=== PATIENT | female | born 1945 | race Caucasian/White ===

== ENCOUNTER → 2016-08-16 | Outpatient (CLI) | payer MEDICARE, BC ==
--- NOTE | 2016-08-17 10:28 | MRI ---
EXAM DESCRIPTION: Cervical Spine CLINICAL HISTORY: 71 years Female, RADICULOPATHY COMPARISON: None. TECHNIQUE: Multiplanar, multisequence imaging of the cervical spine was performed without contrast. FINDINGS: There is reversal of the normal cervical lordosis. Disc desiccation noted at all levels with intervertebral disc height loss at C5-6 and C6-7. The craniocervical and atlantoaxial junctions are unremarkable. C2-C3: No spinal canal or neuroforaminal narrowing. C3-C4: Focal posterior disc protrusion. This contacts the midline diameter of the cord. The AP diameter of the spinal canal is narrowed to 8 mm. There is mild left neural foraminal narrowing from facet and uncovertebral joint hypertrophy. C4-5: Broad-based posterior disc protrusion with minimal cord flattening. The midline diameter of the spinal canal is adequate at 1 cm. Bilateral neuroforamen are unremarkable. C5-6: Broad-based posterior disc osteophyte complex with cord flattening. The midline diameter of spinal canal is moderately narrowed to 7 mm. There is moderate left and mild right neuroforaminal narrowing. C6-C7: Broad-based asymmetric to the right disc osteophyte complex with anterior right cord contact. The midline diameter of spinal canal is narrowed to 7.5 mm. There is mild bilateral neuroforaminal narrowing, right greater than left. C7-T1: Unremarkable. IMPRESSION: Today's exam demonstrates multilevel degenerative change with spinal canal narrowing at C5-6 and C6-7. There is cord contact noted at from C3-4 through C6-7 with no evidence of myelomalacia. Multilevel neural foraminal narrowing noted. Electronically signed by: Gómez Almazan MD 08/17/2016 10:27 AM NUTRITION PARTNER
--- NOTE | 2016-08-17 10:33 | MRI ---
EXAM DESCRIPTION: Lumbar Spine w/o Contrast CLINICAL HISTORY: 71 years Female, RADICULOPATHY COMPARISON: None. TECHNIQUE: Multiplanar, multisequence imaging of the lumbar spine was performed. No contrast was administered. FINDINGS: Vertebral body height and marrow signal are unremarkable. There is posterior fusion of L4-5 with an interbody spacer device. This stabilizes subtle grade 1 anterior listhesis. The conus terminates at L1. It is unremarkable. L1-L2: Unremarkable. L2-L3: Facet degeneration and ligamentum flavum thickening. There is no spinal canal or neural foraminal narrowing. Hinckley' s disease noted. L3-4: Facet degeneration, ligamentum flavum thickening noted. There is no spinal canal or neuroforaminal narrowing. Hinckley' s disease noted. L4-5: Fusion noted. The AP diameter of the spinal canal is widely patent measuring 11 mm. Bilateral neuroforamen are likely adequate. L5-S1: Bilateral facet degeneration. There is narrowing of the left lateral recess and contact of the descending left S1 nerve root. The midline diameter of the spinal canal is unremarkable measuring 11 mm. Bilateral neural foramen are mildly narrowed, but no exiting nerve root contact. IMPRESSION: There is no evidence of restenosis or neural foraminal narrowing within the surgical bed of L4-5. No spinal canal narrowing at any level. There is only mild neural foraminal narrowing at L5-S1 with no exiting nerve for contact. The facet degeneration at L5-S1 results in narrowing the left lateral recess and contact of the descending left S1 nerve root. This can result in a left S1 radiculopathy, if the patient is symptomatic. 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 Electronically signed by: Gómez Almazan MD 08/17/2016 10:32 AM IT QUALITY ASSURANCE ANALYST
--- NOTE | 2016-08-17 10:39 | MRI ---
EXAM DESCRIPTION: Thoracic Spine w/o Contrast CLINICAL HISTORY: 71 years Female, RADICULOPATHY COMPARISON: None. TECHNIQUE: Multiplanar, multisequence imaging of the thoracic spine was performed without contrast. FINDINGS: Vertebral body height, alignment and marrow signal are unremarkable. There is multilevel disc desiccation, but no intervertebral disc height loss. Today's exam demonstrates no abnormal cord signal. Small broad-based posterior disc protrusions at T3-T4, T4-T5 and T10-T11. No cord contact. No spinal canal narrowing at any level. There is mild right neural foraminal narrowing at T12-L1. There is mild left neural foraminal narrowing noted at T11-T12 and T12-L1, but no exiting nerve root contact. IMPRESSION: There is subtle degenerative disc and facet disease. There is no evidence of spinal canal narrowing or cord contact at any level. Minimal facet degeneration within the lower thoracic spine which results in bilateral neural foraminal narrowing at T12-L1 and left neural foraminal narrowing at T11-T12. No definitive exiting nerve root contact. Electronically signed by: Gómez Almazan MD 08/17/2016 10:38 AM DAIRY EQUIPMENT INSTALLER
== END | disposition home or self-care (01) ==
LOC: MRI 09:57
PROVIDERS: ATTEND Orthopaedic Surgery Orthopaedic Surgery of the Spine
DX: M96.1 Postlaminectomy syndrome, not elsewhere classified (principal); M54.16 Radiculopathy, lumbar region

== ENCOUNTER → 2016-10-24 | Outpatient (CLI) | payer MEDICARE, BC | END | disposition home or self-care (01) | LOC: GMAM 10:33 | PROVIDERS: ATTEND Family Medicine | DX: E03.8 Other specified hypothyroidism (principal) ==

== ENCOUNTER → 2017-02-10 | Outpatient (CLI) | payer MEDICARE, BC | LOC: GMAM 08:22 | PROVIDERS: ATTEND Family Medicine | DX: R35.0 Frequency of micturition (principal) ==

== ENCOUNTER → 2017-02-15 | Outpatient (CLI) | payer MEDICARE, BC | END | disposition home or self-care (01) | LOC: GMAM 16:33 | PROVIDERS: ATTEND Family Medicine | DX: E03.8 Other specified hypothyroidism (principal) ==

== ENCOUNTER → 2017-03-28 | Outpatient (CLI) | payer MEDICARE, BC | END | disposition home or self-care (01) | LOC: GMAM 10:59 | PROVIDERS: ATTEND Family Medicine | DX: R10.2 Pelvic and perineal pain (principal) ==

== ENCOUNTER → 2017-03-31 | Outpatient (CLI) | payer MEDICARE, BC ==
--- NOTE | 2017-04-02 19:05 | US ---
EXAM DESCRIPTION: Soft Tissue, abdominal wall: Ultrasound CLINICAL HISTORY: R/O LEFT SIDE HERNIA, SUPRAPUBIC ABD PN . Pain to the left of the pubic bone. Bladder infection one week ago. COMPARISON: None Available. TECHNIQUE: Transcutaneous scanning: Two-dimensional and Doppler modes. FINDINGS: Typical appearance of heterogeneous fatty and muscular tissues in the region of the left inguinal canal as well as iliofemoral vessels. 4 cm nonreactive lymph node. No peristalsing bowel without/with Valsalva maneuver, in the left inguinal region. No discrete solid masses besides lymph nodes. No cysts. No parenchymal fluid collection. IMPRESSION: 1. Left renal Hernia was not demonstrated. Left inguinal lymph nodes were visualized. Electronically signed by: Kehinde Guevara MD 04/02/2017 7:03 PM CDT
== END | disposition home or self-care (01) ==
LOC: US 09:33
PROVIDERS: ATTEND Family Medicine
DX: R10.32 Left lower quadrant pain (principal); R59.9 Enlarged lymph nodes, unspecified; R10.2 Pelvic and perineal pain

== ENCOUNTER 2017-04-06 13:25 | Emergency (ER) | payer MEDICARE, BC ==
[2017-04-06 13:40] VITALS: TEMP 97.1
[2017-04-06] MEDS ORDERED: KETOROLAC TROMETHAMINE INJ 30 MG/ML VIAL IM ONE (13:55)
[2017-04-06] MEDS ORDERED: diazePAM 2 MG TAB PO ONE (13:56)
--- NOTE | 2017-04-06 14:32 | RAD ---
EXAM DESCRIPTION: Lumbar Spine 3 Views CLINICAL HISTORY: 71 years Female, fall with pain COMPARISON: None. FINDINGS: 3 views of the lumbar spine show osseous structures to be osteopenic. No compression fracture deformity is seen. Pedicle screw and vertical bridger fixation with interbody implant is solid interbody fusion at L4-5 is seen without complicating features. Alignment is unremarkable. Facet hypertrophic and degenerative changes are seen at L5-S1. Moderate vascular calcifications are seen without aneurysmal dilatation of the aorta. IMPRESSION: Posterior hardware fixation and interbody fusion at L4-5 is seen without complicating features. Facet arthropathy at L5-S1 is noted. Electronically signed by: Kyle Groves MD 04/06/2017 2:31 PM CDT
--- NOTE | 2017-04-06 14:35 | RAD ---
EXAM DESCRIPTION: Thoracic Spine Lateral Only CLINICAL HISTORY: fall with pain COMPARISON: MRI August 16, 2016 IMPRESSION: Single lateral view of the thoracic spine shows mild anterior wedging of the superior plate of a midthoracic vertebral body probably T7. This has a somewhat similar appearance to the prior MRI exam. Mild anterior wedging of the superior plate of T5 is also suggested and is seen on previous MRI. Multilevel mild disc space narrowing and marginal endplate osteophytes consistent with disc degenerative changes. Electronically signed by: Kyle Groves MD 04/06/2017 2:34 PM CDT
--- NOTE | 2017-04-06 15:09 | ED.PDOC ---
History of Present Illness - General Chief Complaint: Trauma Stated Complaint: Fell backwards, back/R rib discomfort Time Seen by Provider: 04/06/17 13:30 Source: patient Exam Limitations: no limitations - History of Present Illness Initial Comments: The patient is a 71-year-old female presenting to emergency room secondary to back pain. The patient does have a history of chronic back pain and has had surgeries in the past. [place] and is having some increased pain in her lumbar and thoracic spine. There are no obvious new step-offs there are no abrasions or bruises noted. No new neurological deficits. She is just having some increased pain.no other obvious injuries. Timing/Duration: 1 hour Severity: moderate Improving Factors: immobilization Worsening Factors: movement Associated Symptoms: denies symptoms Allergies/Adverse Reactions: Allergies Iodine Allergy (Severe, Verified 09/25/14 18:14) Other skin reaction - 3rd degree burn Povidone Iodine [From Betadine] Allergy (Severe, Verified 09/25/14 18:14) Other skin reaction - 3rd degree burn Shellfish Allergy Allergy (Severe, Verified 09/25/14 18:14) Anaphylaxis Tramadol Allergy (Severe, Verified 09/25/14 18:14) Shortness of Breath Codeine Allergy (Verified 04/06/17 13:40) Vomitting Hydrocodone Allergy (Verified 04/06/17 13:40) Vomitting Latex Allergy (Verified 04/06/17 13:40) Rash Home Medications: Ambulatory Orders Allopurinol [Zyloprim] 100 mg PO BEDTIME 03/21/16 Cholecalciferol [Vitamin D3] 400 unit PO BID 03/21/16 Furosemide 20 mg PO DAILY 03/21/16 Levothyroxine Sodium [Synthroid] 112 mcg PO DAILY 03/21/16 Losartan Potassium 50 mg PO DAILY 03/21/16 Metformin HCl 500 mg PO BID 03/21/16 Montelukast Sodium 10 mg PO BEDTIME 03/21/16 Potassium Gluconate 595 mg PO BEDTIME 03/21/16 Pravastatin Sodium 80 mg PO BEDTIME 03/21/16 Gabapentin [Neurontin] 600 mg PO TID PRN 04/06/17 Review of Systems - Review of Systems Constitutional: States: no symptoms reported EENTM: States: no symptoms reported Respiratory: States: no symptoms reported Cardiology: States: no symptoms reported Gastrointestinal/Abdominal: States: no symptoms reported Genitourinary: States: no symptoms reported Musculoskeletal: States: back pain Skin: States: no symptoms reported Neurological: States: no symptoms reported Endocrine: States: no symptoms reported All other Systems: No Change from Baseline Past Medical History (General) - Patient Medical History Hx Stroke: Yes - per Dr. Pierre, last episode 2013 Hx Asthma: No Hx Cardiac Disorders: No Hx Congestive Heart Failure: Yes Hx Hypertension: Yes Hx Thyroid Disease: Yes Hx Diabetes: Yes Hx MRSA: No Surgical History: appendectomy, cholecystectomy, tonsillectomy, Hysterectomy, other - Vaccination History Hx Tetanus, Diphtheria Vaccination: Yes Hx Influenza Vaccination: Yes - 2017 Hx Pneumococcal Vaccination: Yes - Social History Hx Tobacco Use: No Family Medical History - Family History Father Family History: No Known Living Status: Cause of : Train accident Physical Exam - Physical Exam General Appearance: Alert, No apparent distress Eye Exam: bilateral normal Ears, Nose, Throat: hearing grossly normal, normal ENT inspection, normal pharynx Neck: supple, normal inspection Respiratory: no respiratory distress, no accessory muscle use Cardiovascular/Chest: normal peripheral pulses, no edema, other - regular rate Gastrointestinal/Abdominal: non tender, soft Rectal Exam: deferred Back Exam: other - the patient has multiple sore areas surrounding her lumbar and thoracic spine but noobvious new visible or palpable trauma. Extremity: non-tender, no pedal edema, no calf tenderness, normal capillary refill Neurologic: optimization consultant II-XII nml as tested, alert, normal mood/affect, oriented x 3 Skin Exam: normal color Comments: Vital Signs - 24 hr 04/06/17 04/06/17 13:38 14:30 Temperature 97.1 F L Pulse Rate [ 85 73 Left Radial] Respiratory 20 20 Rate Blood Pressure 143/73 115/48 [Left Arm] O2 Sat by Pulse 95 95 Oximetry Progress - Progress Progress: 04/06/17 15:10 the patient is a 71-year-old female presenting with worsening of her back pain after having fallen off of a bench today. X-rays of the lumbar and thoracic spine show no evidence of any new trauma. The patient appears to be neurologically at her baseline. The patient can use topical heat in the form of icy hot or Biofreeze along with a heat pad to help reduce muscle spasm. She should expect to be sore for a period of 2-3 weeks. She needs to keep follow- up with her pain management doctor. If the current pain is significant and persisting for more than 10 days to 2 weeks then a repeat x-ray may be warranted. Departure - Departure Clinical Impression: Low back pain Qualifiers: Chronicity: acute Back pain laterality: bilateral Sciatica presence: without sciatica Qualified Code(s): M54.5 - Low back pain Disposition: Discharge to Home or Self Care Condition: Fair Departure Forms: ED Discharge - Pt. Copy, Patient Portal Self Enrollment Diet: diabetic diet Activity: increase activity as tolerated Home Medications: Ambulatory Orders Allopurinol [Zyloprim] 100 mg PO BEDTIME 03/21/16 Cholecalciferol [Vitamin D3] 400 unit PO BID 03/21/16 Furosemide 20 mg PO DAILY 03/21/16 Levothyroxine Sodium [Synthroid] 112 mcg PO DAILY 03/21/16 Losartan Potassium 50 mg PO DAILY 03/21/16 Metformin HCl 500 mg PO BID 03/21/16 Montelukast Sodium 10 mg PO BEDTIME 03/21/16 Potassium Gluconate 595 mg PO BEDTIME 03/21/16 Pravastatin Sodium 80 mg PO BEDTIME 03/21/16 Gabapentin [Neurontin] 600 mg PO TID PRN 04/06/17 Additional Instructions: the patient is a 71-year-old female presenting with worsening of her back pain after having fallen off of a bench today. X-rays of the lumbar and thoracic spine show no evidence of any new trauma. The patient appears to be neurologically at her baseline. The patient can use topical heat in the form of icy hot or Biofreeze along with a heat pad to help reduce muscle spasm. She should expect to be sore for a period of 2-3 weeks. She needs to keep follow- up with her pain management doctor. If the current pain is significant and persisting for more than 10 days to 2 weeks then a repeat x-ray may be warranted.
[2017-04-06 15:36] VITALS: BP 112/64; O2SAT 94
== END 2017-04-06 15:25 | disposition home or self-care (01) ==
LOC: ER 13:25
DX: M54.5 Low back pain (principal); I11.0 Hypertensive heart disease with heart failure; I10 Essential (primary) hypertension; E07.9 Disorder of thyroid, unspecified; E11.9 Type 2 diabetes mellitus without complications; Z86.73 Personal history of transient ischemic attack (TIA), and cerebral infarction without residual deficits; Z79.899 Other long term (current) drug therapy; Z88.8 Allergy status to other drugs, medicaments and biological substances
CPT/HCPCS: 72020; 72100; J1885

== ENCOUNTER → 2017-04-07 | Outpatient (CLI) | payer MEDICARE, BC ==
--- NOTE | 2017-04-08 13:09 | CT ---
EXAM DESCRIPTION: COMPUTED TOMOGRAPHY PELVIS WITHOUT IV CONTRAST CLINICAL HISTORY: 71 years Female, LYMPHADENOPATHY R59.9 COMPARISON: None. TECHNIQUE: Axial imaging. No IV contrast. Sagittal and coronal reconstruction FINDINGS: Status post hysterectomy. Diverticulosis noted descending and sigmoid colon. No evidence of diverticulitis. No masses or adenopathy. No free intraperitoneal fluid is seen. Vascular calcifications noted. Lumbar spine operative change with L4-5 pedicle screws and interbody graft. Minimal anterolisthesis L4 on L5. IMPRESSION: Post hysterectomy Diverticulosis. No evidence of diverticulitis Vascular calcifications Lumbar spine operative change No masses, adenopathy, free fluid, or inflammatory process Electronically signed by: Rashi Tan 04/08/2017 1:08 PM CDT
== END | disposition home or self-care (01) ==
LOC: CT 13:02
PROVIDERS: ATTEND Family Medicine
DX: R59.9 Enlarged lymph nodes, unspecified (principal)

== ENCOUNTER → 2017-05-12 | Outpatient (CLI) | payer MEDICARE, BC | END | disposition home or self-care (01) | LOC: GMAM 10:17 | PROVIDERS: ATTEND Family Medicine | DX: E03.8 Other specified hypothyroidism (principal); E11.9 Type 2 diabetes mellitus without complications; E78.2 Mixed hyperlipidemia ==

== ENCOUNTER → 2017-08-02 | Outpatient (CLI) | payer MEDICARE, BC | LOC: GMAM 12:56 | PROVIDERS: ATTEND Family Medicine | DX: R30.0 Dysuria (principal) ==

== ENCOUNTER 2017-10-30 05:42 | Day surgery (SDC) | payer MEDICARE, BC ==
[2017-10-30] MEDS ORDERED: TROP 1%/CYCLOPEN 1%/PHENYL 2% DROPS ONE (06:14)
[2017-10-30] MEDS: TOBRAMYCIN SULF 0.3 % OPHT SOL 1 DROP LEFT_EYE ONE ×2 (12:30→13:10)
[2017-10-30] MEDS: PROPARACAINE 0.5% OPHTH SOL 15 ML BTTL LEFT_EYE ONE ×2 (12:30→12:47)
[2017-10-30] MEDS ORDERED: MIDAZOLAM INJ 2 MG/2 ML VIAL ONE ×2 (12:41→12:45)
[2017-10-30] MEDS ORDERED: LIDOCAINE 1% PF 2 ML AMP INJ ONE ×2 (12:56→13:03)
[2017-10-30] MEDS ORDERED: DEXAMETHASONE 0.1% OPHTH SOL 1 DROP LEFT_EYE ONE ×3 (12:56→13:10)
[2017-10-30] MEDS ORDERED: BRIMONIDINE 0.2% OPHTH DROPS LEFT_EYE ONE ×3 (12:57→13:10)
[2017-10-30] MEDS ORDERED: TOBRAMYCIN SULF 0.3 % OPHT SOL 1 DROP LEFT_EYE ONE ×2 (12:57→13:04)
[2017-10-30 15:35] VITALS: BP 133/72; TEMP 96.9; O2SAT 96
== END 2017-10-30 13:55 | disposition home or self-care (01) ==
LOC: AMB 05:42
PROVIDERS: ATTEND Ophthalmology
DX: H25.12 Age-related nuclear cataract, left eye (principal); I10 Essential (primary) hypertension; E11.36 Type 2 diabetes mellitus with diabetic cataract; E66.9 Obesity, unspecified; Z88.5 Allergy status to narcotic agent; Z88.8 Allergy status to other drugs, medicaments and biological substances; Z87.891 Personal history of nicotine dependence; Z79.84 Long term (current) use of oral hypoglycemic drugs; Z79.899 Other long term (current) drug therapy
CPT/HCPCS: 00142; 66984; J2250

== ENCOUNTER 2017-11-13 05:15 | Day surgery (SDC) | payer MEDICARE, BC ==
[2017-11-13] MEDS ORDERED: PROPARACAINE 0.5% OPHTH SOL 15 ML BTTL ONE (05:42)
[2017-11-13] MEDS ORDERED: TROP 1%/CYCLOPEN 1%/PHENYL 2% DROPS ONE (05:43)
[2017-11-13] MEDS ORDERED: MIDAZOLAM INJ 2 MG/2 ML VIAL ONE ×2 (07:01)
[2017-11-13] MEDS ORDERED: PROPARACAINE 0.5% OPHTH SOL 15 ML BTTL RIGHT_EYE ONE (07:18)
[2017-11-13] MEDS ORDERED: LIDOCAINE 1% PF 2 ML AMP INJ ONE (07:27)
[2017-11-13] MEDS ORDERED: DEXAMETHASONE 0.1% OPHTH SOL 1 DROP RIGHT_EYE ONE ×2 (07:27→07:30)
[2017-11-13] MEDS ORDERED: BRIMONIDINE 0.2% OPHTH DROPS RIGHT_EYE ONE ×2 (07:28→07:30)
[2017-11-13] MEDS ORDERED: TOBRAMYCIN SULF 0.3 % OPHT SOL 1 DROP RIGHT_EYE ONE ×2 (07:28→07:30)
== END 2017-11-13 08:05 | disposition home or self-care (01) ==
LOC: AMB 05:15
PROVIDERS: ATTEND Ophthalmology
DX: H25.11 Age-related nuclear cataract, right eye (principal); I10 Essential (primary) hypertension; E11.36 Type 2 diabetes mellitus with diabetic cataract; E66.9 Obesity, unspecified; J45.909 Unspecified asthma, uncomplicated; Z88.5 Allergy status to narcotic agent; Z88.8 Allergy status to other drugs, medicaments and biological substances; Z87.891 Personal history of nicotine dependence; Z79.84 Long term (current) use of oral hypoglycemic drugs; Z79.899 Other long term (current) drug therapy
CPT/HCPCS: 00142; 66984; J2250

== ENCOUNTER → 2018-03-05 | Outpatient (CLI) | payer MEDICARE, BC ==
--- NOTE | 2018-03-05 09:38 | RAD ---
EXAM DESCRIPTION: Pelvis CLINICAL HISTORY: 72 years Female, RT HIP PAIN COMPARISON: February 22, 2016 FINDINGS: Single view of the pelvis demonstrates the bony pelvis intact with intact SI joints and symphysis pubis. The superior and inferior pubic rami are intact. Hypertrophic changes involving each hip and greater trochanteric region is present. No fracture or deformity is seen. Significant asymmetry or a worse appearance to the symptomatic right hip is not apparent compared to the left. IMPRESSION: Degenerative hip arthropathy and hypertrophic changes overlying the greater trochanter bilaterally. Electronically signed by: Sagar Francis MD 03/05/2018 9:37 AM CDT
== END ==
LOC: RAD 08:20
PROVIDERS: ATTEND Orthopaedic Surgery
DX: M25.551 Pain in right hip (principal); M12.851 Other specific arthropathies, not elsewhere classified, right hip

== ENCOUNTER → 2018-04-05 | Outpatient (CLI) | payer MEDICARE, BC ==
--- NOTE | 2018-04-06 13:45 | MAM ---
EXAM DESCRIPTION: 3D Diagnostic, Bilateral: Digital Mammography CLINICAL HISTORY: 72 [id number] . Soreness of right breast. No personal history or family history of breast cancer. Childbirth. Postmenopausal 45 years. HRT 5 or more years ago. Prior right breast cyst aspiration. Lifetime risk of developing breast cancer (Tyrer-Cuzick model) percentage is 3.5 COMPARISON: 2-D digital screening bilateral study 04/21/2015.. No prior reports available.. TECHNIQUE: Bilateral CC LM MLO projection full-field images, digital mammographic tomosynthesis technique. CAD not utilized. FINDINGS: The breast parenchymal density pattern is: Scattered areas of fibroglandular density. No skin thickening or nipple retraction axillary lymph nodes bilaterally. Bilateral vascular calcifications. Bilateral solitary microcalcifications. Stable intramammary density upper posterior left breast most likely a lymph node. No new focal, stellate mass or density, focal asymmetry , and no suspicious microcalcifications bilaterally. Stable mammograms compared to prior study, taking into account differences in mammographic technique IMPRESSION: Benign exam. BIRAD CATEGORY: 2 BENIGN FINDINGS. RECOMMENDATIONS: FOLLOW UP: Routine digital bilateral screening, one year interval from March 2018. Written communication explaining the IMPRESSION and follow-up, will be mailed to the patient and referring health care provider. According to the [employer], yearly mammograms are recommended starting at age 40 and continuing as long as a woman is in good health. Any breast change noted on a breast self-exam should be reported promptly to the patient's healthcare provider. Breast MRI is recommended for women with an approximately 20-25% or greater lifetime risk of breast cancer, including women with a strong family history of breast or ovarian cancer and women who have been treated for Hodgkin's disease. A negative mammographic report should not delay tissue diagnosis in patients with significant clinical history or physical findings. Extremely dense breast tissue limits the sensitivity of digital mammography. Electronically signed by: Kehinde Guevara MD 04/06/2018 1:43 PM CDT
== END ==
LOC: MAMMO 08:30
PROVIDERS: ATTEND Family Medicine
DX: R92.8 Other abnormal and inconclusive findings on diagnostic imaging of breast (principal)
CPT/HCPCS: 77066; G0279

== ENCOUNTER → 2018-04-11 | Outpatient (CLI) | payer MEDICARE, BC ==
--- NOTE | 2018-04-11 13:32 | MRI ---
Study: MRI of the Left Ankle. Indication: ANKLE PAIN Technique: Multiplanar, multi sequence MRI of the left ankle was obtained without intravenous contrast. Comparison: None. Findings: Insertional Achilles tendinosis with mild thickening and inflammation at this site as well as low-grade interstitial fissuring at the midline. Associated enthesophyte formation with internal marrow edema. Trace retrocalcaneal bursal fluid. Plantar calcaneal heel spurring without active inflammation of the plantar fascia. No acute fracture or malalignment. Subtle fibrocartilaginous calcaneonavicular coalition. Low-grade chondral thinning throughout the tibiotalar and subtalar joints without full-thickness chondral defect. Tiny joint effusions noted. Prior sprain and thickening anterior tibiofibular ligament. Prior partial thickness tear and attenuation anterior talofibular ligament. No acute fluid filled tear of the medial 4 lateral ankle ligaments. Anterior tendons and medial tendons intact. Tendinosis and longitudinal split tearing peroneus brevis tendon along the posterior and inferior margin lateral malleolus extending to the distal calcaneus. Peroneus longus tendon intact. Impression: Insertional Achilles tendinosis and low-grade interstitial fissuring as above. Peroneus brevis tendinosis and longitudinal split tearing. Low-grade chondrosis tibiotalar and subtalar joint without full-thickness chondral defect. Prior high-grade partial thickness tearing anterior talofibular ligament as well as a prior sprain anterior tibiofibular ligament. Subtle fibrocartilaginous calcaneonavicular coalition. Electronically signed by: Juan Portillo MD 04/11/2018 1:31 PM CDT
== END ==
LOC: MRI 10:20
PROVIDERS: ATTEND Family Medicine
DX: S93.492A Sprain of other ligament of left ankle, initial encounter (principal); M94.8X7 Other specified disorders of cartilage, ankle and foot

== ENCOUNTER → 2018-08-21 | Outpatient (CLI) | payer MEDICARE, BC | LOC: GMAM 18:08 | PROVIDERS: ATTEND Family Medicine | DX: M25.50 Pain in unspecified joint (principal) ==

== ENCOUNTER 2018-09-08 03:44 | Emergency (ER) | payer MEDICARE, BC ==
[2018-09-08 03:58] VITALS: TEMP 97.7
[2018-09-08] MEDS ORDERED: ASPIRIN TABLET 325 MG TAB PO ONE (04:22)
--- NOTE | 2018-09-08 04:26 | ED.PDOC ---
History of Present Illness - General Chief Complaint: Chest Pain/MT Stated Complaint: CP, SOB since 0 Time Seen by Provider: 09/08/18 04:07 Source: patient Exam Limitations: no limitations - History of Present Illness Initial Comments: Patient presents with pressure to her chest for 6 hours. Constant, mid-sternal with radiation to her neck and mid-back. No particular timing nor context. She says she has had chest pressure before but it has been "years" and "not like this". Worse with sitting up, better with laying down. She has had chest congestion with a cough occasionally productive of yellow sputum for two days. She is unaware of a fever. She has a distant history of asthma and says that she doesn't carry an inhaler anymore. She says this does not feel like an asthma attack. Denies any cardiac history. Has NIDDM. Non-smoker. Occasional bipedal edema. Has hyperlipidemia. No other complaints. Timing/Duration: 4-6 hours Severity/Quality: moderate, pressure Location: central, back, other - neck Chest Pain Radiation: neck Activities at Onset: none Prior Chest Pain/Cardiac Workup: no prior chest pain, no prior cardiac workup Improving Factors: other - sitting up Worsening Factors: other - laying down Nitro Today/Relief: no nitro taken today Aspirin Treatment Today: no aspirin today Associated Symptoms: back pain - see HPI for other symptoms Allergies/Adverse Reactions: Allergies Iodine Allergy (Severe, Verified 09/08/18 03:59) Other skin reaction - 3rd degree burn Povidone Iodine [From Betadine] Allergy (Severe, Verified 09/08/18 03:59) Other skin reaction - 3rd degree burn Shellfish Allergy Allergy (Severe, Verified 09/08/18 03:59) Anaphylaxis Tramadol Allergy (Severe, Verified 09/08/18 03:59) Shortness of Breath Codeine Allergy (Verified 09/08/18 03:59) Vomitting Hydrocodone Allergy (Verified 09/08/18 03:59) Vomitting Latex Allergy (Verified 04/06/17 13:40) Rash All Narcotics Allergy (Uncoded 09/08/18 03:59) Home Medications: Ambulatory Orders Allopurinol [Zyloprim] 100 mg PO BEDTIME 03/21/16 Cholecalciferol [Vitamin D3] 400 unit PO BID 03/21/16 Furosemide 20 mg PO DAILY 03/21/16 Levothyroxine Sodium [Synthroid] 112 mcg PO DAILY 03/21/16 Losartan Potassium 50 mg PO DAILY 03/21/16 Metformin HCl 500 mg PO BID 03/21/16 Montelukast Sodium 10 mg PO BEDTIME 03/21/16 Potassium Gluconate 595 mg PO BEDTIME 03/21/16 Pravastatin Sodium 80 mg PO BEDTIME 03/21/16 Gabapentin [Neurontin] 600 mg PO TID PRN 04/06/17 Review of Systems - Review of Systems Constitutional: States: no symptoms reported EENTM: States: no symptoms reported Respiratory: States: see HPI Cardiology: States: see HPI Gastrointestinal/Abdominal: States: no symptoms reported Genitourinary: States: no symptoms reported Musculoskeletal: States: no symptoms reported Skin: States: no symptoms reported Neurological: States: no symptoms reported Endocrine: States: no symptoms reported Hematologic/Lymphatic: States: no symptoms reported Past Medical History (General) - Patient Medical History Hx Seizures: No Hx Stroke: No Hx Dementia: No Hx Asthma: No Hx of COPD: No Hx Cardiac Disorders: No Hx Congestive Heart Failure: No Hx Pacemaker: No Hx Hypertension: Yes Hx Thyroid Disease: Yes Hx Diabetes: Yes - Type II Hx Gastroesophageal Reflux: No Hx Renal Disease: No Hx Cancer: No Hx of HIV: No Hx Hepatitis C: No Hx MRSA: No Surgical History: noncontributory - Vaccination History Hx Tetanus, Diphtheria Vaccination: Yes Hx Influenza Vaccination: Yes - 2017 Hx Pneumococcal Vaccination: Yes - Social History Hx Tobacco Use: No Family Medical History - Family History Father Family History: No Known Living Status: Cause of : Train accident Physical Exam - Physical Exam General Appearance: Alert Eyes, Ears, Nose, Throat Exam: PERRL/EOMI, normal ENT inspection Neck: non-tender, full range of motion, supple Respiratory: no respiratory distress, no accessory muscle use, other - transmitted grunting from the trachea Cardiovascular/Chest: normal peripheral pulses, regular rate, rhythm Gastrointestinal/Abdominal: normal bowel sounds, non tender, soft Extremity: normal range of motion, non-tender, normal inspection 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, no motor/sensory deficits, alert, normal mood/affect, oriented x 3 Skin Exam: normal color Lymphatic: no adenopathy Progress - Progress Progress: 09/08/18 05:55 Laboratory Tests 09/08/18 09/08/18 09/08/18 03:47 03:47 04:12 WBC 5.6 RBC 4.02 L Hgb 12.8 Hct 38.6 MCV 96.2 MCH 31.9 H MCHC 33.2 RDW 14.5 Plt Count 199 MPV 10.2 Absolute Neuts (auto) 2.80 Absolute Lymphs (auto) 2.00 Absolute Monos (auto) 0.60 Absolute Eos (auto) 0.20 Absolute Basos (auto) 0.00 Neutrophils % 50.2 Lymphocytes % 35.2 Monocytes % 10.4 H Eosinophils % 3.6 Basophils % 0.6 PT 9.1 INR 0.91 PTT (SP) 24.3 D-Dimer, Quantitative 0.51 H* Sodium 138 Potassium 4.2 Chloride 105 Carbon Dioxide 22 Anion Gap 15.2 BUN 13 Creatinine 0.70 BUN/Creatinine Ratio 18.6 Random Glucose 124 H Serum Osmolality 277.2 Calcium 8.9 Magnesium 1.9 Total Bilirubin 0.4 Direct Bilirubin 0.1 Indirect Bilirubin 0.3 AST 43 H ALT 30 Alkaline Phosphatase 83 Creatine Kinase 67 CK-MB (CK-2) 1.6 CK-MB (CK-2) % Not Reportable Troponin I < 0.02 B-Natriuretic Peptide 11.2 Serum Total Protein 7.0 Albumin 3.8 TSH 2.86 Thyroxine (T4) 11.45 CXR unremarkable. EKG read by me showed NSR with no ST changes nor T wave inversions. No LBBB. troponin negative. Patient has had IV contrast before. CTA chest and ab/pelvis were performed out of concern for TAA or AAA. CTA chest negative. CT ab/pelvis negative. Patient was given a GI cocktail. DDX includes esophageal spasm, upper back sprain, spinal nerve paresthesia, anxiety, pleurisy. Care instructions given. E.R. warnings given. Questions were elicited and answered. Patient voiced understanding and agreement with the plan. Departure - Departure Clinical Impression: Chest pain Disposition: Discharge to Home or Self Care Condition: Good Departure Forms: ED Discharge - Pt. Copy, Patient Portal Self Enrollment Instructions: DI for Chest Pain, Acid Reflux (Gastroesophageal Reflux Disease), Adult (DC) Diet: low fat, low cholesterol, diabetic diet Activity: increase activity as tolerated Home Medications: Ambulatory Orders Allopurinol [Zyloprim] 100 mg PO BEDTIME 03/21/16 Cholecalciferol [Vitamin D3] 400 unit PO BID 03/21/16 Furosemide 20 mg PO DAILY 03/21/16 Levothyroxine Sodium [Synthroid] 112 mcg PO DAILY 03/21/16 Losartan Potassium 50 mg PO DAILY 03/21/16 Metformin HCl 500 mg PO BID 03/21/16 Montelukast Sodium 10 mg PO BEDTIME 03/21/16 Potassium Gluconate 595 mg PO BEDTIME 03/21/16 Pravastatin Sodium 80 mg PO BEDTIME 03/21/16 Gabapentin [Neurontin] 600 mg PO TID PRN 04/06/17 Additional Instructions: Take one tablet of Prilosec 30 minutes before your first meal of the day. Take another tablet 30 minutes before the last thing you eat for the day. Stop your Metformin for two days. Resume taking it on Monday. See your regular doctor if the symptoms continue. Return to the E.R. for worsening symptoms, shortness of breath, light-headedness, or temperature above 100.4.
--- NOTE | 2018-09-08 04:29 | RAD ---
EXAM: Single view chest. INDICATION: Chest pain. COMPARISON: Chest x-ray: 03/11/2016. FINDINGS: Cardiac silhouette: Unremarkable. Sylvia: Unremarkable. Lobar consolidation: None. Pleural effusion: None. Pneumothorax: None. Other: None. Bones: Changes of a right shoulder arthroplasty Other: None. IMPRESSION: 1. No acute cardiopulmonary process. Electronically signed by: Jakob Vidal MD 09/08/2018 4:26 AM CDT Workstation: [id number]
[2018-09-08 05:38] VITALS: O2SAT 95
--- NOTE | 2018-09-08 05:39 | CT ---
EXAM DESCRIPTION: CTA Chest CLINICAL HISTORY: 73 years, Female, chest pain radiating to the back COMPARISON: None. TECHNIQUE: Axial images through the chest were performed after the administration of intravenous contrast using a pulmonary embolus protocol. MIPS were performed. This exam was performed according to our departmental dose-optimization program which includes use of Automated Exposure Control, adjustment of the mA and/or kV according to patient size and/or use of iterative reconstruction technique. FINDINGS: No pulmonary embolus is identified. Normal caliber aorta without dissection. No pericardial effusion. No pleural effusion. No focal lung consolidation. No pneumothorax. Patent central airway. Soft tissues are unremarkable. No acute osseous findings. No acute abnormality within the visualized upper abdomen. Diffuse fatty infiltration of the liver. IMPRESSION: No pulmonary embolus. Electronically signed by: Glenn Pierre DO 09/08/2018 5:36 AM CDT
--- NOTE | 2018-09-08 05:39 | CT ---
CLINICAL HISTORY: chest pain, mid-back pain, concern for AAA COMPARISON: None. TECHNIQUE: CT ABDOMEN PELVIS WITH IV CONTRAST on 09/08/2018 4:31 AM CDT This exam was performed according to our departmental dose-optimization program, which includes automated exposure control, adjustment of the mA and/or kV according to patient size and/or use of iterative reconstruction technique. FINDINGS: Lower lungs are clear. Abdomen: The liver is fatty in attenuation. There is no biliary dilatation. The pancreas and spleen are normal in appearance. Adrenal glands are normal. Kidneys are mildly atrophic. Abdominal aorta is normal in course and caliber without aneurysm. There is no free air. There is no retroperitoneal adenopathy. Pelvis: There is mild diverticulosis of the distal colon. Urinary bladder is unremarkable. There is no free fluid. Hysterectomy was performed. Appendix is not clearly seen abdominal aorta is densely calcified without aneurysm. Skeleton: There are no acute osseous findings. No suspicious bony lesions. IMPRESSION: No definite acute inflammatory process. No evidence of abdominal aortic aneurysm. Electronically signed by: Jared Berrios MD 09/08/2018 5:36 AM CDT
[2018-09-08] MEDS ORDERED: LIDOCAINE HCL 2% (MOUTH-THROAT) 15 ML UD ONE (05:54)
[2018-09-08] MEDS ORDERED: ALUM & MAG HYDROX-SIMETHICONE 30 ML UD ONE (05:54)
[2018-09-08] MEDS ORDERED: ALUM & MAG HYDROX-SIMETHICONE 30 ML, LIDOCAINE VISCOUS 2% 15 ML PO ONE ×2 (05:55)
[2018-09-08 06:11] VITALS: BP 145/88
== END 2018-09-08 06:11 | disposition home or self-care (01) ==
LOC: ER 03:44
DX: R07.2 Precordial pain (principal); R05 Cough; J45.909 Unspecified asthma, uncomplicated; E11.9 Type 2 diabetes mellitus without complications; E78.5 Hyperlipidemia, unspecified; E07.9 Disorder of thyroid, unspecified; Z79.899 Other long term (current) drug therapy; Z79.84 Long term (current) use of oral hypoglycemic drugs; Z88.8 Allergy status to other drugs, medicaments and biological substances; Z88.5 Allergy status to narcotic agent; Z91.040 Latex allergy status; Z91.013 Allergy to seafood; Z91.041 Radiographic dye allergy status

== ENCOUNTER 2018-09-22 00:36 | Emergency (ER) | payer MEDICARE, BC ==
[2018-09-22 00:52] VITALS: O2SAT 97
[2018-09-22] MEDS ORDERED: LIDOCAINE HCL 2% (MOUTH-THROAT) 15 ML UD ONE (00:56)
[2018-09-22] MEDS ORDERED: ALUM & MAG HYDROX-SIMETHICONE 30 ML UD ONE (00:56)
[2018-09-22] MEDS: ALUM & MAG HYDROX-SIMETHICONE 30 ML, LIDOCAINE VISCOUS 2% 15 ML PO ONE ×2 (00:59)
[2018-09-22] MEDS: ONDANSETRON ODT 8 MG TAB SL ONE (00:59)
[2018-09-22] MEDS: SUCRALFATE 1 GM/10 ML 1 GM UD PO ONE (00:59)
[2018-09-22] MEDS: cefTRIAXone SODIUM 1 GM VIAL IM ONE (02:17)
--- NOTE | 2018-09-22 02:17 | RAD ---
CLINICAL HISTORY: ruq and flank pain COMPARISON: None. TECHNIQUE: XR ABDOMEN SUPINE AND ERECT WITH CHEST (ABD ACUTE SERIES) 09/22/2018 1:37 AM CDT FINDINGS: Bowel gas pattern is nonspecific. There are no abnormal radiopaque foreign bodies or abnormal calcifications. Right shoulder arthroplasty was performed. Lower lumbar fusion was performed. The heart is normal in size. Lungs are clear. IMPRESSION: No bowel obstruction. Electronically signed by: Jared Berrios MD 09/22/2018 2:14 AM CDT
[2018-09-22] MEDS: KETOROLAC TROMETHAMINE INJ 30 MG/ML VIAL IM ONE (02:18)
[2018-09-22] MEDS: CIPROFLOXACIN 500 MG TAB PO ONE (02:18)
--- NOTE | 2018-09-22 02:31 | ED.PDOC ---
History of Present Illness - General Chief Complaint: Abdominal Pain Stated Complaint: abd pain, worse over last 24hrs. Time Seen by Provider: 09/22/18 00:51 Source: patient Exam Limitations: no limitations - History of Present Illness Initial Comments: The patient is a 73-year-old female presenting to emergency room secondary to recurrent right flank and upper abdominal pain along with one episode of nausea and vomiting. No syncope. No blood and no bile. The patient had a similar episode a couple of weeks ago and was treated for gastritis. She did improve for a couple weeks but is now back worse. No fever. No chest pain. No syncope or near syncope. Severity: moderate Improving Factors: nothing Worsening Factors: nothing Associated Symptoms: malaise, nausea/vomiting Allergies/Adverse Reactions: Allergies Iodine Allergy (Severe, Verified 09/22/18 01:04) Other skin reaction - 3rd degree burn Povidone Iodine [From Betadine] Allergy (Severe, Verified 09/22/18 01:04) Other skin reaction - 3rd degree burn Shellfish Allergy Allergy (Severe, Verified 09/22/18 01:04) Anaphylaxis Tramadol Allergy (Severe, Verified 09/22/18 01:04) Shortness of Breath Codeine Allergy (Verified 09/22/18 01:04) Vomitting Hydrocodone Allergy (Verified 09/22/18 01:04) Vomitting Latex Allergy (Verified 09/22/18 01:04) Rash All Narcotics Allergy (Uncoded 09/08/18 03:59) Home Medications: Ambulatory Orders Allopurinol [Zyloprim] 100 mg PO BEDTIME 03/21/16 Cholecalciferol [Vitamin D3] 400 unit PO BID 03/21/16 Furosemide 20 mg PO DAILY 03/21/16 Levothyroxine Sodium [Synthroid] 112 mcg PO DAILY 03/21/16 Losartan Potassium 50 mg PO DAILY 03/21/16 Metformin HCl 500 mg PO TID 03/21/16 Montelukast Sodium 10 mg PO BEDTIME 03/21/16 Potassium Gluconate 595 mg PO BEDTIME 03/21/16 Pravastatin Sodium 80 mg PO BEDTIME 03/21/16 Gabapentin [Neurontin] 600 mg PO TID PRN 04/06/17 Cephalexin Monohydrate [Keflex] 500 mg PO Q8H #20 cap 09/22/18 Ciprofloxacin [Cipro] 500 mg PO BID #14 tab 09/22/18 Review of Systems - Review of Systems Constitutional: States: no symptoms reported EENTM: States: no symptoms reported Respiratory: States: no symptoms reported Cardiology: States: no symptoms reported Gastrointestinal/Abdominal: States: see HPI Genitourinary: States: no symptoms reported Musculoskeletal: States: back pain Skin: States: no symptoms reported Neurological: States: no symptoms reported Endocrine: States: no symptoms reported All other Systems: No Change from Baseline Past Medical History (General) - Patient Medical History Hx Seizures: No Hx Stroke: No Hx Dementia: No Hx Asthma: Yes Hx of COPD: No Hx Cardiac Disorders: No Hx Congestive Heart Failure: No Hx Pacemaker: No Hx Hypertension: Yes Hx Thyroid Disease: Yes Hx Diabetes: Yes Hx Gastroesophageal Reflux: No Hx Renal Disease: No 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 Hx of HIV: No Hx Hepatitis C: No Hx MRSA: No Surgical History: appendectomy, cholecystectomy, Hysterectomy, other - Vaccination History Hx Tetanus, Diphtheria Vaccination: Yes Hx Influenza Vaccination: Yes Hx Pneumococcal Vaccination: Yes - Social History Hx Tobacco Use: No Hx Alcohol Use: No Hx Substance Use: No Hx Substance Use Treatment: No Hx Depression: No Family Medical History - Family History Father Family History: No Known Living Status: Cause of : Train accident Physical Exam - Physical Exam General Appearance: Alert, No apparent distress Eye Exam: bilateral normal Ears, Nose, Throat: hearing grossly normal, normal ENT inspection, normal pharynx Neck: full range of motion, supple Respiratory: lungs clear, normal breath sounds, no respiratory distress, no accessory muscle use Cardiovascular/Chest: normal peripheral pulses, regular rate, rhythm, no edema Peripheral Pulses: radial,right: 2+, radial,left: 2+ Gastrointestinal/Abdominal: soft, other - right upper quadrant discomfort to palpation along with some epigastric discomfort to palpation. 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 The patient appears to have a urinary tract infection and likely pyelonephritis of the right kidney. She does additionally have some gastritis and possibly duodenitis. The patient has been started on Rocephin and ciprofloxacin here tonight for the urinary tract infection. she will be continued on ciprofloxacin and Keflex as an outpatient for one week. Additionally the patient is being treated with additional GI medications for the gastritis and duodenitis in the form of Carafate 4 times daily. ER warnings were given. She needs to follow back up with her primary care doctor towards the end of this week. Urine culture is being performed. - Results/Orders Results/Orders: acute abdominal series shows no acute pathology. Laboratory Tests 09/22/18 09/22/18 09/22/18 01:36 01:36 01:37 WBC 7.5 RBC 4.15 L Hgb 13.4 Hct 39.6 MCV 95.4 MCH 32.2 H MCHC 33.8 RDW 14.2 Plt Count 224 MPV 9.8 Absolute Neuts (auto) 4.60 Absolute Lymphs (auto) 2.10 Absolute Monos (auto) 0.70 Absolute Eos (auto) 0.10 Absolute Basos (auto) 0.10 Neutrophils % 60.8 Lymphocytes % 27.6 Monocytes % 8.8 Eosinophils % 2.0 Basophils % 0.8 Sodium 137 Potassium 4.2 Chloride 103 Carbon Dioxide 24 Anion Gap 14.2 BUN 11 Creatinine 0.67 BUN/Creatinine Ratio 16.4 Random Glucose 127 H Serum Osmolality 274.8 L Lactic Acid 1.8 Calcium 9.1 Magnesium Total Bilirubin 0.3 AST 41 ALT 33 Alkaline Phosphatase 99 Creatine Kinase 65 CK-MB (CK-2) 1.3 CK-MB (CK-2) % Not Reportable Troponin I < 0.02 B-Natriuretic Peptide 14.6 Serum Total Protein 7.2 Albumin 3.8 Globulin 3.4 Albumin/Globulin Ratio 1.1 Amylase 69 Lipase TSH Urine Color Urine Appearance Urine pH Ur Specific Harrison Urine Protein Urine Glucose (UA) Urine Ketones Urine Blood Urine Nitrite Urine Bilirubin Urine Urobilinogen Ur Leukocyte Esterase Urine RBC Urine WBC Ur Epithelial Cells Urine Bacteria 09/22/18 09/22/18 01:37 01:41 WBC RBC Hgb Hct MCV MCH MCHC RDW Plt Count MPV Absolute Neuts (auto) Absolute Lymphs (auto) Absolute Monos (auto) Absolute Eos (auto) Absolute Basos (auto) Neutrophils % Lymphocytes % Monocytes % Eosinophils % Basophils % Sodium Potassium Chloride Carbon Dioxide Anion Gap BUN Creatinine BUN/Creatinine Ratio Random Glucose Serum Osmolality Lactic Acid Calcium Magnesium 1.9 Total Bilirubin AST ALT Alkaline Phosphatase Creatine Kinase CK-MB (CK-2) CK-MB (CK-2) % Troponin I B-Natriuretic Peptide Serum Total Protein Albumin Globulin Albumin/Globulin Ratio Amylase Lipase 46 TSH 6.18 H Urine Color Yellow Urine Appearance Sl cloudy Urine pH 7.5 Ur Specific Harrison 1.015 Urine Protein Negative Urine Glucose (UA) Negative Urine Ketones Negative Urine Blood Trace-intact H Urine Nitrite Negative Urine Bilirubin Negative Urine Urobilinogen 0.2 Ur Leukocyte Esterase Large H Urine RBC 3-5 H Urine WBC Tntc H Ur Epithelial Cells 5-10 Urine Bacteria 3+ H Departure - Departure Clinical Impression: Pyelonephritis Gastritis Qualifiers: Gastritis type: unspecified gastritis Chronicity: acute Gastritis bleeding: without bleeding Qualified Code(s): K29.00 - Acute gastritis without bleeding Disposition: Discharge to Home or Self Care Condition: Fair Departure Forms: ED Discharge - Pt. Copy, Patient Portal Self Enrollment Instructions: Gastritis (DC), Urinary Tract Infection, Adult (DC) Diet: bland diet, diabetic diet Activity: increase activity as tolerated Referrals: Sagar Gamez MD [Primary Care Provider] - 1-2 Weeks Prescriptions: Cephalexin Monohydrate [Keflex] 500 mg PO Q8H #20 cap Ciprofloxacin [Cipro] 500 mg PO BID #14 tab Home Medications: Ambulatory Orders Allopurinol [Zyloprim] 100 mg PO BEDTIME 03/21/16 Cholecalciferol [Vitamin D3] 400 unit PO BID 03/21/16 Furosemide 20 mg PO DAILY 03/21/16 Levothyroxine Sodium [Synthroid] 112 mcg PO DAILY 03/21/16 Losartan Potassium 50 mg PO DAILY 03/21/16 Metformin HCl 500 mg PO TID 03/21/16 Montelukast Sodium 10 mg PO BEDTIME 03/21/16 Potassium Gluconate 595 mg PO BEDTIME 03/21/16 Pravastatin Sodium 80 mg PO BEDTIME 03/21/16 Gabapentin [Neurontin] 600 mg PO TID PRN 04/06/17 Cephalexin Monohydrate [Keflex] 500 mg PO Q8H #20 cap 09/22/18 Ciprofloxacin [Cipro] 500 mg PO BID #14 tab 09/22/18 Additional Instructions: the patient is a 73-year-old female presenting to emergency room secondary to right upper abdominal and back pain. The patient appears to have a urinary tract infection and likely pyelonephritis of the right kidney. She does additionally have some gastritis and possibly duodenitis. The patient has been started on Rocephin and ciprofloxacin here tonight for the urinary tract infection. she will be continued on ciprofloxacin and Keflex as an outpatient for one week. Additionally the patient is being treated with additional GI medications for the gastritis and duodenitis in the form of Carafate 4 times daily. ER warnings were given. She needs to follow back up with her primary care doctor towards the end of this week. Urine culture is being performed.
[2018-09-22 02:44] VITALS: BP 121/56; TEMP 97.8
== END 2018-09-22 02:44 | disposition home or self-care (01) ==
LOC: ER 00:36
DX: N12 Tubulo-interstitial nephritis, not specified as acute or chronic (principal); K29.00 Acute gastritis without bleeding; J45.909 Unspecified asthma, uncomplicated; I10 Essential (primary) hypertension; E07.9 Disorder of thyroid, unspecified; E11.9 Type 2 diabetes mellitus without complications; Z85.828 Personal history of other malignant neoplasm of skin; Z90.49 Acquired absence of other specified parts of digestive tract; Z79.84 Long term (current) use of oral hypoglycemic drugs; Z79.899 Other long term (current) drug therapy; Z88.5 Allergy status to narcotic agent; Z91.040 Latex allergy status; Z91.041 Radiographic dye allergy status; Z88.8 Allergy status to other drugs, medicaments and biological substances; Z91.013 Allergy to seafood
CPT/HCPCS: 36415; 74019; 80053; 81001; 82150; 82550; 82553; 83605; 83690; 83735; 83880; 84443; 84484; 85025; 87086; J0696; J1885

== ENCOUNTER → 2018-10-19 | Outpatient (CLI) | payer MEDICARE, BC ==
--- NOTE | 2018-10-19 13:53 | CT ---
EXAM DESCRIPTION: Abdoment/Pelvis w/o Contrast CLINICAL HISTORY: 73 years, Female, ACUTE PYELONEPHRITIS WITHOUT MEDULLARY NECROSIS COMPARISON: None. TECHNIQUE: CT of the abdomen and pelvis is performed according to our non contrast protocol. FINDINGS: The lung bases are clear. Low density liver is consistent diffuse hepatic steatosis. Gallbladder is not seen and may be surgically absent. Liver, spleen, and pancreas are otherwise unremarkable. Adrenal glands appear normal. The right kidney contains a 1.5 mm calculus in the midportion with no hydronephrosis. Tiny 1 mm calculus in the mid left kidney with no hydronephrosis. Small bowel loops appear normal in caliber with normal wall thickness. There is no lymphadenopathy, inflammation, or free fluid observed. In the pelvis, the appendix is not seen and may be surgically absent. No inflammation around the cecum or terminal ileum or sigmoid colon. Sigmoid diverticulosis is present without acute appearing inflammation. No stones in the distal ureters or bladder. Rectal wall thickness is normal for degree of distention. No free fluid or mass in the pelvis. Uterus and ovaries are not seen, evidently surgically absent. No inguinal or lower pelvic adenopathy. Degenerative narrowing of the hip joints. Orthopedic hardware in the lower L-spine. Coronal and sagittal reformatted images confirm the findings. Liver length of 20.4 cm is increased. IMPRESSION: Mildly enlarged liver with diffuse hepatic steatosis. Tiny nonobstructing renal calculi. This exam was performed according to our departmental dose-optimization program, which includes automated exposure control, adjustment of the mA and/or kV according to patient size and/or use of iterative reconstruction technique. Total DLP equals 1176.69 mGycm. Electronically signed by: Antoine Eric MD 10/19/2018 1:51 PM CDT
== END ==
LOC: CT 08:30
PROVIDERS: ATTEND Family Medicine
DX: N10 Acute pyelonephritis (principal); K76.0 Fatty (change of) liver, not elsewhere classified; N20.0 Calculus of kidney

== ENCOUNTER → 2018-12-14 | Outpatient (CLI) | payer MEDICARE, BC ==
--- NOTE | 2018-12-14 15:19 | MRI ---
MRI left knee without contrast INDICATION: Knee pain meniscal tear osteoarthrosis TECHNIQUE: Noncontrast MR imaging left knee FINDINGS: Normal patellofemoral alignment. Small joint effusion. Small Bernal's cyst. Multifocal mild patellofemoral chondrosis. Extensor tendinosis with hypertrophy/enthesophyte of the tibial tubercle. Mild prepatellar and superficial infrapatellar bursitis. Cruciate ligament are intact. Diffuse degenerative tear medial meniscus with free edge truncation and mild volume loss. Joint space narrowing medial tibiofemoral compartment with up to grade 4 chondral thinning in the medial compartment. Marginal osteophytes. Mild degenerative change lateral meniscus. There are enthesophytes upper and lower pole patella related to the patellar tendon and quadriceps attachments. Partial medial meniscal extrusion along the medial jointline. Mild degenerative change lateral meniscus with chondral thinning especially lateral tibial plateau. No disruption of the collateral ligaments. 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
== END ==
LOC: MRI 12:35
PROVIDERS: ATTEND Family Medicine
DX: M17.12 Unilateral primary osteoarthritis, left knee (principal); M23.304 Other meniscus derangements, unspecified medial meniscus, left knee; M22.42 Chondromalacia patellae, left knee; M71.22 Synovial cyst of popliteal space [Baker], left knee

== ENCOUNTER 2019-01-04 23:36 | Emergency (ER) | payer MEDICARE, BC ==
[2019-01-05] MEDS ORDERED: SODIUM CHLORIDE 0.9% 1000ML 1,000 ML IVS ONE (00:05)
[2019-01-05] MEDS ORDERED: ONDANSETRON ODT 8 MG TAB SL ONE (00:05)
--- NOTE | 2019-01-05 00:07 | ED.PDOC ---
History of Present Illness - General Chief Complaint: GI Problem Stated Complaint: n/v/d Time Seen by Provider: 01/05/19 00:04 Information Source: patient, family Exam Limitations: no limitations - History of Present Illness Initial Comments: patient comes in with her for nausea, vomiting, and diarrhea. Patient stated she started feeling ill on Monday and then had horrible bouts of nausea, vomiting, and diarrhea. She started to get a little bit better yesterday but then suffered a relapse tonight. Her started getting sick2 and half days ago. Patient states that just have not been able to get better on their own. No questionable by mouth intake or recent travel. No fever, cough, congestion. Patient has had some chills. Patient does have a past medical history of diabetes mellitus, hypothyroidism, hypertension, and a varied muscle skeletal complaints Abdominal Pain Onset Location: generalized abdomen Pain Radiation: no radiation Quality: mild, cramping Timing/Duration: days - 4 Improving Factors: nothing Worsening Factors: nothing Associated Symptoms: nausea/vomiting Review of Systems - Review of Systems Constitutional: States: chills, weakness EENTM: States: no symptoms reported. Denies: eye pain, ear pain, nose congestion, throat pain Respiratory: States: no symptoms reported. Denies: cough, short of breath Cardiology: States: no symptoms reported. 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 Hx of HIV: No Hx Hepatitis C: No Hx MRSA: No Surgical History: appendectomy, cholecystectomy, Hysterectomy - Vaccination History Hx Tetanus, Diphtheria Vaccination: Yes Hx Influenza Vaccination: Yes Hx Pneumococcal Vaccination: Yes - Social History Hx Tobacco Use: No Hx Alcohol Use: No Hx Substance Use: No Hx Substance Use Treatment: No Hx Depression: No Family Medical History - Family History Father Family History: No Known Living Status: Cause of : Train accident Physical Exam - Physical Exam General Appearance: Alert, Comfortable, No apparent distress Eyes, Ears, Nose, Throat Exam: PERRL/EOMI, normal ENT inspection, TMs normal, pharynx normal Neck: non-tender, full range of motion, supple, normal inspection Respiratory: chest non-tender, lungs clear, normal breath sounds, no respiratory distress Cardiovascular/Chest: normal peripheral pulses, regular rate, rhythm, no edema, no gallop, no JVD, no murmur Peripheral Pulses: No deficit Gastrointestinal/Abdominal: normal bowel sounds, soft, no organomegaly, no pulsatile mass, tenderness - mild tenderness to palpation diffusely with no rebound and no guarding Extremity: non-tender Neurologic: alert, oriented x 3 Progress - Results/Orders Results/Orders: 01/05/19 00:05 Sodium Chloride 0.9% 1000ML [Ns 1000 ml] 1,000 ml IVS ONCE Laboratory Results WBC 8.4 K/mm3 (4.8-10.8) 01/05/19 00:05 RBC 4.56 M/mm3 (4.20-5.40) 01/05/19 00:05 Hgb 14.4 gm/dL (12.0-16.0) 01/05/19 00:05 Hct 43.6 % (36.0-47.0) 01/05/19 00:05 MCV 95.5 fl (81.0-99.0) 01/05/19 00:05 MCH 31.6 pg (27.0-31.0) H 01/05/19 00:05 MCHC 33.1 g/dL (33.0-37.0) 01/05/19 00:05 RDW 14.9 % (11.5-14.5) H 01/05/19 00:05 Plt Count 252 K/mm3 (130-400) 01/05/19 00:05 MPV 9.3 fl (7.40-10.4) 01/05/19 00:05 Absolute Neuts (auto) 7.20 K/uL (1.8-6.8) H 01/05/19 00:05 Absolute Lymphs (auto) 0.60 K/uL (1.0-3.4) L 01/05/19 00:05 Absolute Monos (auto) 0.40 K/uL (0.2-0.8) 01/05/19 00:05 Absolute Eos (auto) 0.10 K/uL (0.0-0.4) 01/05/19 00:05 Absolute Basos (auto) 0.00 K/uL (0.0-0.1) 01/05/19 00:05 Neutrophils % 86.3 % (42.0-78.0) H 01/05/19 00:05 Lymphocytes % 6.9 % (20.0-50.0) L 01/05/19 00:05 Monocytes % 5.0 % (2.0-9.0) 01/05/19 00:05 Eosinophils % 1.4 % (1.0-5.0) 01/05/19 00:05 Basophils % 0.4 % (0.0-2.0) 01/05/19 00:05 Sodium 140 mmol/L (135-145) 01/05/19 00:05 Potassium 4.2 mmol/L (3.6-5.0) 01/05/19 00:05 Chloride 103 mmol/L (101-111) 01/05/19 00:05 Carbon Dioxide 25 mmol/L (21-31) 01/05/19 00:05 Anion Gap 16.2 (12-18) 01/05/19 00:05 BUN 14 mg/dL (7-18) 01/05/19 00:05 Creatinine 0.85 mg/dL (0.6-1.3) 01/05/19 00:05 BUN/Creatinine Ratio 16.5 (10-20) 01/05/19 00:05 Random Glucose 145 mg/dL (70-105) H 01/05/19 00:05 Serum Osmolality 282.5 mOsm/L (275-295) 01/05/19 00:05 Calcium 9.6 mg/dL (8.4-10.2) 01/05/19 00:05 Total Bilirubin 0.6 mg/dL (0.2-1.0) 01/05/19 00:05 AST 38 IU/L (10-42) 01/05/19 00:05 ALT 31 IU/L (10-60) 01/05/19 00:05 Alkaline Phosphatase 73 IU/L (42-121) 01/05/19 00:05 Serum Total Protein 7.9 gm/dL (6.4-8.2) 01/05/19 00:05 Albumin 4.2 g/dl (3.2-5.5) 01/05/19 00:05 Globulin 3.7 gm/dL (2.3-3.5) H 01/05/19 00:05 Albumin/Globulin Ratio 1.1 (1.1-1.9) 01/05/19 00:05 Departure - Departure Clinical Impression: Gastroenteritis Disposition: Discharge to Home or Self Care Condition: Fair Departure Forms: ED Discharge - Pt. Copy, Patient Portal Self Enrollment Referrals: Sagar Gamez MD [Primary Care Provider] - 1-2 Weeks Prescriptions: Ondansetron Odt [Zofran ODT] 8 mg PO Q8HRS PRN #10 tab PRN Reason: Nausea Home Medications: Ambulatory Orders Allopurinol [Zyloprim] 100 mg PO BEDTIME 03/21/16 Cholecalciferol [Vitamin D3] 400 unit PO BID 03/21/16 Furosemide 20 mg PO DAILY 03/21/16 Levothyroxine Sodium [Synthroid] 112 mcg PO DAILY 03/21/16 Losartan Potassium 50 mg PO DAILY 03/21/16 Metformin HCl [Metformin Hydrochloride] 500 mg PO TID 03/21/16 Montelukast Sodium 10 mg PO BEDTIME 03/21/16 Potassium Gluconate 595 mg PO BEDTIME 03/21/16 Pravastatin Sodium 80 mg PO BEDTIME 03/21/16 Gabapentin [Neurontin] 600 mg PO TID PRN 04/06/17 Cephalexin Monohydrate [Keflex] 500 mg PO Q8H #20 cap 09/22/18 Ciprofloxacin [Cipro] 500 mg PO BID #14 tab 09/22/18 Ondansetron Odt [Zofran ODT] 8 mg PO Q8HRS PRN #10 tab 01/05/19 Additional Instructions: return to ER for worsening of symptoms, intractable emesis or severe pain. Follow up with PCP on Monday
[2019-01-05 01:26] VITALS: BP 125/70; TEMP 98.2; O2SAT 93
== END 2019-01-05 00:21 | disposition home or self-care (01) ==
LOC: ER 23:36
DX: K52.9 Noninfective gastroenteritis and colitis, unspecified (principal); J45.909 Unspecified asthma, uncomplicated; I10 Essential (primary) hypertension; E03.9 Hypothyroidism, unspecified; E11.9 Type 2 diabetes mellitus without complications; Z85.828 Personal history of other malignant neoplasm of skin
CPT/HCPCS: 36415; 80053; 85025; J7030

== ENCOUNTER → 2019-01-10 | Outpatient (CLI) | payer MEDICARE, BC ==
--- NOTE | 2019-01-10 08:23 | RAD ---
EXAM DESCRIPTION: Pelvis CLINICAL HISTORY: 73 years Female, M25.552 COMPARISON: None. FINDINGS: Orthopedic hardware in the lower lumbar spine. Sacrum appears intact. Intact bones of the pelvic ring. Large marginal osteophytes at the acetabular margins bilaterally. Enthesopathy of the iliac wings and at the bilateral greater trochanters. No femoral fracture or hip dislocation. Mild degenerative narrowing of the hip joints and pubic symphysis. Degenerative narrowing of the SI joints. IMPRESSION: Negative for fracture. Degenerative changes as described. Electronically signed by: Antoine Eric MD 01/10/2019 8:21 AM CDT
== END ==
LOC: RAD 07:37
PROVIDERS: ATTEND Orthopaedic Surgery
DX: M16.0 Bilateral primary osteoarthritis of hip (principal)

== ENCOUNTER → 2019-01-18 | Outpatient (CLI) | payer MEDICARE, BC ==
--- NOTE | 2019-01-21 13:06 | CT ---
EXAM DESCRIPTION: CTA Neck: Computed Tomography. CLINICAL HISTORY: OCCLUSION AND STENOSIS OF BILATERAL CAROTID ARTERIES. Abnormal ultrasound carotid screening. COMPARISON: None available. TECHNIQUE: Spiral, axial 2.5 x 2.5 mm scans through the neck soft tissues after bolus infusion of IV contrast. Coronal and sagittal 2.0 mm reconstructions. 3D volume rendering images 0.6 mm . Percentage of stenosis recorded will be based upon NASCET criteria. Total Exam DLP: 461.07 mGy-cm. This exam was performed according to our departmental CT dose-optimization program which includes automated exposure control, adjustment of the mA and/or kV according to patient size and/or use of iterative reconstruction technique; to reduce radiation dose to as low as reasonably achievable (ALARA). FINDINGS: Minimal calcification of the origin of the right CCA. Less than 20% stenosis of the lateral wall of the proximal right ICA by calcification and similar narrowing of the anterior wall slightly more distally. Intracranial segment unremarkable with normal bifurcation and additional right posterior communicating artery. Minimal atherosclerotic calcification of the origin of the left CCA. Bifurcation is negative with minimal intimal wall thickening approximately 25% proximal left ICA. Calcification in the carotid siphon with approximately 25% narrowing. Normal bifurcation to form the left YVES and middle cerebral artery. No left posterior communicating artery. No significant stenosis, no aneurysm, no mass effect, no vasculitis in the anterior circulation. Bilateral vertebral arteries with standard origins from the subclavian arteries. Vertebral artery slightly larger than the left. Major vessels originating bilaterally from the vertebral arteries are unremarkable. Normal junction to form the basilar artery and normal basilar artery bifurcation. No aneurysms, no stenosis, no mass effect, and no vasculitis. Right upper extremity contrast injection with multiple venous collaterals in the right shoulder neck and breast. Small emphysematous blebs in a centrilobular distribution in the bilateral upper lobes of the lungs with Mosaic densities bilaterally. Small thyroid gland. No marked adenopathy or soft tissue mass in the neck soft tissues or subcutaneous adipose tissues. Airway appears relatively symmetric with no effacement or displacement. Air-fluid level in the left sphenoid sinus. Other paranasal sinus air cells unremarkable. Soft tissue in some of the inferior bilateral mastoid air cells. Anterolisthesis C2-3 C3-4 and C4-5. C5-C6 and C6-C7 with spondylosis canal and bilateral neural foraminal narrowing. IMPRESSION: 1. No significant stenosis in the anterior posterior circulations of the neck and head. No aneurysms, no mass effect, no midline shift. 2. Collateral flow in the right side of the neck and shoulder after right upper extremity injection. This can indicate a partial thrombus. 3. Emphysematous changes in the included upper lungs. 4. Air-fluid level in the left sphenoid air cell indicating acute sinusitis. 5. Spondylosis and anterolisthesis at several levels of the cervical spine. Electronically signed by: Kehinde Guevara MD 01/21/2019 11:24 AM CDT
== END ==
LOC: CT 10:00
PROVIDERS: ATTEND Family Medicine
DX: I65.23 Occlusion and stenosis of bilateral carotid arteries (principal); J43.9 Emphysema, unspecified; M47.892 Other spondylosis, cervical region; M43.12 Spondylolisthesis, cervical region

== ENCOUNTER → 2019-01-28 | Outpatient (CLI) | payer MEDICARE, BC ==
--- NOTE | 2019-01-28 16:28 | US ---
EXAM DESCRIPTION: Venous,Upper Extremity RT: ULTRASOUND. CLINICAL HISTORY: CERVICALGIA COMPARISON: None Available. TECHNIQUE: Two -dimensional and doppler sonographic evaluation of the deep venous system of the right upper extremity. FINDINGS: Doppler evaluation shows normal color flow and normal phasicity and augmentation of the right subclavian, jugular, axillary, basilic, cephalic, brachial, radial vein and ulnar vein. The right upper extremity deep veins showed normal occlusion with transducer pressure. Two-dimensional survey showed no echogenic thrombus within these veins. IMPRESSION: Duplex ultrasound evaluation of the right upper extremity deep venous system showing no thrombosis . Electronically signed by: Kehinde Guevara MD 01/28/2019 4:27 PM CDT
== END ==
LOC: LAB.O 10:30
PROVIDERS: ATTEND Family Medicine
DX: R93.89 Abnormal findings on diagnostic imaging of other specified body structures (principal); M54.2 Cervicalgia; R19.7 Diarrhea, unspecified

== ENCOUNTER 2019-02-05 05:32 | Day surgery (SDC) | payer MEDICARE, BC ==
--- NOTE | 2019-02-01 09:56 | HP ---
CHIEF COMPLAINT: Left knee pain. HISTORY OF PRESENT ILLNESS: Melisa is a 74-year-old female with a history of pain in the left knee that has been going on for at least 5 months. She has had pain that is prohibiting from doing her daily activities comfortably. It has been unresponsive to physical therapy, topical medications and anti- inflammatories. She does get occasional clicking both medially and now it has started laterally. She has had no gross locking. The clicking is painful and the pain can reach a maximal level of 8. It is sharp in quality. It occurs daily. She has had studies that do reveal she has a meniscus tear. Because of that and her failure of conservative measures, she has requested operative intervention. After discussing the risks, benefits and alternatives to that, she has given informed consent. PAST SURGICAL HISTORY: 1. Tonsillectomy. 2. Hysterectomy. 3. Cholecystectomy. 4. Appendectomy. 5. Oophorectomy. 6. Hemorrhoidectomy. 7. Tumor removal. MEDICATIONS: 1. Levothyroxine. 2. Montelukast. 3. Losartan. 4. Allopurinol. PAIN CONTRACT: She is under a pain contract with Dr. Gamez. ALLERGIES: CODEINE, OXYCODONE. CODE STATUS: DNR. IMMUNIZATIONS: Up to date. SOCIAL HISTORY: The patient does not smoke or use any recreational drugs. She does drink on occasion. FAMILY HISTORY: None pertinent to today's complaint. REVIEW OF SYSTEMS: Negative except as indicated in the History of Present Illness. PHYSICAL EXAMINATION: VITAL SIGNS: Blood pressure 147/64. Pulse 84. Height 5'2". Weight 208 pounds. MENTAL STATUS: The patient is awake, alert, and is able to give a good history and participate in the physical. The patient is oriented to person, place and time. SKIN: Normal tone and turgor. MUSCULOSKELETAL: She has a mild effusion today and is very tender along the medial aspect of the knee. She has tenderness laterally as well. She has intact sensation throughout. She has a warm and well perfused. There is no varus/valgus or anterior/posterior laxity. She has both crepitus and clicking in the knee along the medial aspect and into the patellofemoral joint. Extension is full and flexion is to about 105 degrees. IMAGING: X-rays show arthritic changes. MRI shows meniscal tear as well. ASSESSMENT: 1. Meniscus tear. 2. Arthritis. PLAN: The plan at this point is for knee arthroscopy. We have discussed the risks, benefits, and alternatives to that and the patient has given informed consent. #[id number] [facility]
[2019-02-05] MEDS ORDERED: ceFAZolin SODIUM 1 GM VIAL ONE ×2 (07:39→10:25)
[2019-02-05] MEDS ORDERED: SODIUM CHL 0.9% 100ML MINI-BAG 100 ML IVPB ONE (07:39)
[2019-02-05] MEDS ORDERED: TRANEXAMIC ACID 1,000 MG/10 ML VIAL IV ONE (09:44)
[2019-02-05] MEDS: LACTATED RINGERS 1,000 ML ONE ×2 (09:44→09:45)
[2019-02-05] MEDS ORDERED: PROPOFOL 200 MG/20 ML VIAL IV ONE (10:00)
[2019-02-05] MEDS ORDERED: ePHEDrine SULF 50 MG/ML IV ONE (10:00)
[2019-02-05] MEDS ORDERED: METOCLOPRAMIDE HCL INJ 10 MG/2 ML VIAL IV ONE (10:00)
[2019-02-05] MEDS ORDERED: ONDANSETRON INJ 4 MG/2 ML VIAL IV ONE (10:00)
[2019-02-05] MEDS ORDERED: DEXAMETHASONE INJ 10 MG/ML VIAL IV ONE (10:00)
[2019-02-05] MEDS ORDERED: LIDOCAINE 1% 10 ML VIAL INJ ONE (10:00)
[2019-02-05] MEDS ORDERED: KETOROLAC TROMETHAMINE INJ 30 MG/ML VIAL IV ONE (10:00)
[2019-02-05] MEDS ORDERED: raNITIdine HCL INJ 25 MG/ML VIAL IV ONE (10:00)
[2019-02-05] MEDS ORDERED: BUPIVACAINE LIPOSOME 13.3 MG/ML VIAL INJ ONE (10:26)
[2019-02-05] MEDS ORDERED: VANCOMYCIN HCL INJ 1,000 MG VIAL IVPB ONE (10:26)
[2019-02-05] MEDS ORDERED: KETAMINE HCL 50 MG/ML SYG IV ONE (10:31)
[2019-02-05] MEDS ORDERED: MIDAZOLAM INJ 2 MG/2 ML VIAL ONE (10:31)
[2019-02-05] MEDS ORDERED: fentaNYL CITRATE INJ 50 MCG/ML AMP ONE ×2 (10:31→12:40)
[2019-02-05] MEDS: BUPIVACAINE 0.5% 30 ML VIAL INJ ONE ×2 (11:10→11:58)
[2019-02-05] MEDS ORDERED: LACTATED RINGERS 1,000 ML IVS ONE (12:13)
[2019-02-05] MEDS ORDERED: fentaNYL CITRATE INJ 50 MCG/ML AMP IV ONE ×3 (12:42→13:10)
[2019-02-05 13:26] VITALS: O2SAT 100
[2019-02-05 13:27] VITALS: BP 148/78
[2019-02-05 14:56] VITALS: TEMP 97.1
--- NOTE | 2019-02-06 08:38 | OP ---
DATE OF PROCEDURE: 02/05/19 PREOPERATIVE DIAGNOSIS: 1. Meniscus tear. 2. Osteoarthritis. POSTOPERATIVE DIAGNOSIS: 1. Meniscus tear. 2. Osteoarthritis. PROCEDURE: 1. Partial medial meniscectomy. 2. Partial lateral meniscectomy. 3. Debridement. SURGEON: Donato Keller MD. [employer] SC[employer] TECHNICIAN: Kehinde Faith CST, SA-C. ANESTHESIA: General anesthesia. COMPLICATIONS: None. FINDINGS: 1. Full thickness defects of the cartilage in the medial compartment on both the tibial and femoral surfaces. 2. Flap tears in the body and anterior horn of the medial meniscus. 3. Normal ACL and normal PCL. 4. Advanced cartilage degeneration in the lateral compartment. 5. Degenerative tearing of the lateral meniscus. 6. Normal lateral gutter. 7. Normal suprapatellar pouch. 8. Arthritis of the patellofemoral compartment. 9. Normal medial gutter. INDICATION FOR PROCEDURE: Ms. Lopez has a history of knee pain and she has had some mechanical symptoms. Because of her mechanical symptoms, she did have an MRI which revealed tearing of the meniscus. Despite the presence of arthritis, she requested operative intervention and given the mechanical symptoms, I felt it was reasonable. After discussing the risks, benefits and alternatives to operative therapy, the patient has given informed consent. PROCEDURE: The patient was brought to the Operating Room and placed in supine position. General anesthesia was induced and the patient's leg was sterilely prepped and draped. Following prepping and draping, standard anteromedial and anterolateral portals were established. Diagnostic arthroscopy was carried out with the above findings. Attention was then focused on the medial compartment where debridement of both the meniscus and the chondral surfaces was carried out with a 3.5 mm full radius shaver. Following that, attention was focused on the lateral compartment and it was debrided as well. A superolateral portal was established and the patellofemoral compartment was debrided. Following that, the knee was very thoroughly irrigated and drained. Following draining of the knee, the wounds were closed with Nylon suture. Sterile dressings were placed. The patient was awoken from anesthesia and taken to Recovery. POSTOPERATIVE PLAN: The patient will be nonweightbearing and will followup with us in two days. [facility][id number] [facility]
== END 2019-02-05 14:30 | disposition home or self-care (01) ==
LOC: AMB 05:32
PROVIDERS: ATTEND Orthopaedic Surgery
DX: M23.212 Derangement of anterior horn of medial meniscus due to old tear or injury, left knee (principal); M23.201 Derangement of unspecified lateral meniscus due to old tear or injury, left knee; M17.12 Unilateral primary osteoarthritis, left knee; F32.9 Major depressive disorder, single episode, unspecified; M10.9 Gout, unspecified; I10 Essential (primary) hypertension; E78.5 Hyperlipidemia, unspecified; E03.9 Hypothyroidism, unspecified; Z90.710 Acquired absence of both cervix and uterus; Z90.49 Acquired absence of other specified parts of digestive tract; Z88.5 Allergy status to narcotic agent; Z79.84 Long term (current) use of oral hypoglycemic drugs; Z79.1 Long term (current) use of non-steroidal anti-inflammatories (NSAID); Z79.899 Other long term (current) drug therapy
CPT/HCPCS: 01400; 29880; 36416; 80307; 82948; 87070; J0690; J1100; J1885; J2250; J2405; J2765; J2780; J3010; J3370; J3490; J7050; J7120

== ENCOUNTER → 2019-03-05 | Outpatient (CLI) | payer MEDICARE, BC | LOC: GMAM 11:03 | PROVIDERS: ATTEND Family Medicine | DX: E03.8 Other specified hypothyroidism (principal); I10 Essential (primary) hypertension; E11.9 Type 2 diabetes mellitus without complications ==

== ENCOUNTER → 2019-10-24 | Outpatient (CLI) | payer MEDICARE, BC | LOC: GMAM 11:41 | PROVIDERS: ATTEND Family Medicine | DX: E53.8 Deficiency of other specified B group vitamins (principal); E03.8 Other specified hypothyroidism; E55.9 Vitamin D deficiency, unspecified ==

== ENCOUNTER → 2019-11-01 | Outpatient (CLI) | payer MEDICARE, BC ==
--- NOTE | 2019-11-01 14:50 | MRI ---
EXAM DESCRIPTION: Lumbar Spine w/o Contrast CLINICAL HISTORY: 74 years Female, RADICULOPATHY COMPARISON: MRI of the lumbar spine dated 08/17/2016. TECHNIQUE: Multiplanar multiecho imaging of the lumbar spine was performed without intravenous contrast administration. FINDINGS: Posterior spinal fixation hardware is noted traversing L4 and L5 vertebral bodies. There is persistent grade 1 anterolisthesis of L4 over L5. The vertebral body heights are well-maintained with no acute compression deformity. Multilevel intervertebral disc space narrowing is noted. The conus medullaris terminates at T12-L1 intervertebral disc space. The visualized spinal cord demonstrates no signal abnormality. L1-L2: Disc desiccation and loss of disc height. No disc herniation. Minimal bilateral neural foraminal narrowing secondary to facet arthropathy. L2-L3: Disc desiccation and loss of disc height. 4.5 mm diffuse disc bulge, ligamentum flavum hypertrophy and facet arthropathy with mild canal stenosis. The thecal sac measures 1 cm. Mild right and moderate left neural foraminal narrowing is also present. L3-L4: 2 mm diffuse disc bulge, ligamentum flavum hypertrophy and facet arthropathy with mild central canal stenosis, moderate to severe left lateral recess narrowing, mild left and [id number] left neural foraminal narrowing. The thecal sac measures 1 cm. L4-L5: No significant central canal stenosis. Changes of posterior laminectomy. Moderate bilateral neural foraminal narrowing is noted, worse on the left side. L5-S1: 4 mm diffuse disc bulge asymmetric to the left with impingement of the exiting left L5 nerve root. Bilateral facet arthropathy is noted with resultant severe left lateral recess narrowing, moderate right and moderate to severe left neural foraminal narrowing. The visualized prevertebral and paravertebral soft tissues appear unremarkable. IMPRESSION: Multilevel degenerative disc disease, ligamentum flavum hypertrophy and facet arthropathy throughout the lumbar spine with variable degrees of neural foraminal narrowing, worse at L5-S1 level, as described above. Electronically signed by: Marcelle Mcgowan MD 11/01/2019 2:48 PM CDT
== END ==
LOC: MRI 13:00
PROVIDERS: ATTEND Family Medicine
DX: M54.16 Radiculopathy, lumbar region (principal); M51.36 Other intervertebral disc degeneration, lumbar region; M24.28 Disorder of ligament, vertebrae; M46.96 Unspecified inflammatory spondylopathy, lumbar region; M48.07 Spinal stenosis, lumbosacral region

== ENCOUNTER → 2019-12-24 | Outpatient (CLI) | payer MEDICARE, BC ==
--- NOTE | 2019-12-25 16:51 | MAM ---
EXAM DESCRIPTION: 3D Screening BILATERAL : Digital Mammography. CLINICAL HISTORY: 74 years Female ANNUAL SCREENING history sheet. Lifetime risk of developing breast cancer (Tyrer-Cuzick model)(%): Not calculated COMPARISON: Bilateral diagnostic digital breast tomosynthesis March 2018 and 2-D digital screening bilateral mammography March 2015.. TECHNIQUE: Bilateral CC and MLO projection full-field images, digital tomosynthesis mammographic technique. Bilateral digital 2-D full-field MLO images. CAD available for 2-D images. FINDINGS: The breast parenchymal density pattern is: Scattered areas of fibroglandular density. No skin thickening or nipple retraction. Axillary lymph nodes. Vascular calcifications. Solitary microcalcifications. No new focal, stellate mass or density, focal asymmetry , and no suspicious microcalcifications bilaterally. Stable mammograms compared to prior study. Taking into account, differences in mammographic technique. IMPRESSION: Benign exam. BIRAD CATEGORY: 2 BENIGN FINDINGS. RECOMMENDATIONS: FOLLOW UP: Routine digital bilateral mammographic screening, one year interval from November 2019. Written communication explaining the IMPRESSION and follow-up, will be mailed to the patient and referring health care provider. According to the [employer], yearly mammograms are recommended starting at age 40 and continuing as long as a woman is in good health. Any breast change noted on a breast self-exam should be reported promptly to the patient's healthcare provider. Breast MRI is recommended for women with an approximately 20-25% or greater lifetime risk of breast cancer, including women with a strong family history of breast or ovarian cancer and women who have been treated for Hodgkin's disease. A negative mammographic report should not delay tissue diagnosis in patients with significant clinical history or physical findings. Extremely dense breast tissue limits the sensitivity of digital mammography. Electronically signed by: Kehinde Guevara MD 12/25/2019 4:49 PM CDT
== END ==
LOC: MAMMO 08:04
PROVIDERS: ATTEND Family Medicine
DX: Z12.31 Encounter for screening mammogram for malignant neoplasm of breast (principal)

== ENCOUNTER 2020-03-16 10:39 | Emergency (ER) | payer MEDICARE, BC ==
[2020-03-16] MEDS ORDERED: ASPIRIN (CHEWABLE) 81 MG TAB PO ONE (10:56)
[2020-03-16] MEDS ORDERED: NITROGLYCERIN 0.4 MG 25 EA TAB SL ONE ×2 (10:56→14:02)
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
--- NOTE | 2020-03-16 11:50 | RAD ---
EXAM DESCRIPTION: Chest,2 Views CLINICAL HISTORY: 74 years Female, cp, short of breath COMPARISON: 08 September 2018 TECHNIQUE: PA/lateral FINDINGS: A right shoulder arthroplasty is observed. The lungs are clear. The heart is within range of normal. No pleural fluid is seen. IMPRESSION: 1. Normal two-view chest. Electronically signed by: Miguel Baca MD 03/16/2020 11:48 AM CDT
[2020-03-16 16:08] VITALS: BP 154/80; TEMP 98.2; O2SAT 98
== END 2020-03-16 15:00 | disposition left against medical advice (07) ==
LOC: ER 10:39
DX: I20.9 Angina pectoris, unspecified (principal); E11.9 Type 2 diabetes mellitus without complications; R06.02 Shortness of breath; I25.10 Atherosclerotic heart disease of native coronary artery without angina pectoris; I25.2 Old myocardial infarction; M06.9 Rheumatoid arthritis, unspecified; E07.9 Disorder of thyroid, unspecified; J45.909 Unspecified asthma, uncomplicated; I10 Essential (primary) hypertension; Z53.29 Procedure and treatment not carried out because of patient's decision for other reasons; Z85.828 Personal history of other malignant neoplasm of skin; Z79.899 Other long term (current) drug therapy; Z79.84 Long term (current) use of oral hypoglycemic drugs; Z88.5 Allergy status to narcotic agent; Z91.040 Latex allergy status; Z91.041 Radiographic dye allergy status

== ENCOUNTER → 2020-05-20 | Outpatient (CLI) | payer MEDICARE, BC | LOC: BFHH 10:16 | PROVIDERS: ATTEND Family Medicine | DX: I10 Essential (primary) hypertension (principal); E11.42 Type 2 diabetes mellitus with diabetic polyneuropathy; M48.062 Spinal stenosis, lumbar region with neurogenic claudication; M51.16 Intervertebral disc disorders with radiculopathy, lumbar region; F32.9 Major depressive disorder, single episode, unspecified; M06.9 Rheumatoid arthritis, unspecified; M15.0 Primary generalized (osteo)arthritis; E03.9 Hypothyroidism, unspecified; E78.2 Mixed hyperlipidemia; J45.909 Unspecified asthma, uncomplicated; M25.572 Pain in left ankle and joints of left foot; D64.9 Anemia, unspecified ==

== ENCOUNTER → 2020-08-19 | Outpatient (CLI) | payer MEDICARE, BC | LOC: GMAM 14:59 | PROVIDERS: ATTEND Family Medicine | DX: E53.8 Deficiency of other specified B group vitamins (principal); E55.9 Vitamin D deficiency, unspecified; E03.8 Other specified hypothyroidism; I10 Essential (primary) hypertension; E11.42 Type 2 diabetes mellitus with diabetic polyneuropathy; M10.9 Gout, unspecified ==